=== PATIENT | female | born 1945 | race Caucasian/White ===

== ENCOUNTER 2023-08-19 16:14 | Observation (INO) | payer MEDICARE, SELFPAY ==
[2023-08-19] VITALS (30 sets, daily range): BP systolic 147–174; BP diastolic 66–110; PULSE 62–86; RESP 10–16; TEMP 36.7; O2SAT 95–100
--- NOTE | ~2023-08-19 | XR_ITS ---
EXAMINATION: XR chest 2V DATE: 08/19/2023 16:52 INDICATION: Chest pressure TECHNIQUE: PA and lateral views of the chest are obtained. COMPARISON: None available FINDINGS: The lungs are free of acute opacities. No pleural effusion or pneumothorax. The cardiomedia stinal silhouette is normal. There are bridging osteophytes at multiple levels in the spine, consiste nt with diffuse idiopathic skeletal hyperostosis (DISH). Surgical clips in the right upper quadrant are likely from prior cholecystectomy. IMPRESSION: 1. No acute cardiopulmonary abnormality. Reviewed, dictated and finalized at location F.
--- NOTE | ~2023-08-19 | NM_ITS ---
EXAMINATION: NM addis stress w perfusion DATE: 08/21/2023 13:07 INDICATION: Chest pain. TECHNIQUE: Rest images were obtained following intravenous administration of 9.6 mCi Tc99m tetrofosmi n (Myoview). The patient was infused intravenously with Lexiscan (regadenoson). Then, 31.2 mCi Tc99m tetrofosmin (Myoview) was administered intravenously, and supine and prone stress images were obtaine d. Data was reconstructed into short axis and horizontal and vertical long axis SPECT images. Gated S PECT images were also obtained. COMPARISON: None. FINDINGS: There is a small, mild, fixed perfusion defect involving apical to mid inferior wall of the ventricle, consistent with infarct. No reversible component to suggest ischemia. There is no segmen kenny wall motion abnormality. Left ventricular ejection fraction measures >70%. IMPRESSION: 1. Small area of mild infarct involving apical to mid inferior wall of left ventricle. 2. Normal left ventricular ejection fraction measuring >70%. Reviewed, dictated and finalized at location A. IMPRESSION: 1. Small area of mild infarct involving apical to mid inferior wall of left tonya tricle. 2. Normal left ventricular ejection fraction measuring >70%.
--- NOTE | 2023-08-19 16:15 | ECG_ITS ---
Measurements Intervals [place] Rate: 64 P: 48 CO: 202 QRS: -37 QRSD: 131 T: 61 QT: 399 QTc: 412 Interpretive Statements SINUS RHYTHM MARKED LEFT AXIS DEVIATION [QRS AXIS < -30] INCOMPLETE LEFT BUNDLE BRANCH BLOCK NO PREVIOUS ECG AVAILABLE FOR COMPARISON Electronically Signed On 08-19-2023 16:38:06 CDT by Nay Dickerson M.D.
[2023-08-19 16:45] LABS: Basophils Percent Auto 0.2 % (0.2-1.2); Eosinophils Absolute Auto 0.1 K/mm3 (0-0.3); Hematocrit 35.6 % (37.0-47.0); Hemoglobin 12.2 g/dL (12.0-15.0); Immature Granulocyte Absolute 0.01 K/mm3 (0.00-0.031); Immature Granulocyte Percent A 0.2 % (0-0.5); Immature Platelet Fraction Pct 2.7 % (0.9-11.2); Lymphocytes Absolute Auto 0.88 K/mm3 (0.9-3.2); Lymphocytes Percent Auto 18.3 % (18.3-44.2); Mean Corpuscular HGB Conc 34.3 g/dl (32-36); Mean Corpuscular Hemoglobin 32.2 pg (26-34); Mean Corpuscular Volume 93.9 fl (80-100); Mean Platelet Volume 10.2 fl (7.4-10.4); Monocytes Absolute Auto 0.3 K/mm3 (0.1-0.6); Monocytes Percent Auto 6.9 % (2.6-8.5); Neutrophils Absolute Auto 3.5 K/mm3 (1.3-6.7); Neutrophils Percent Auto 73.4 % (45.5-73.1); Platelet Count Result 69 k/mm3 (150-375); Red Blood Count 3.79 M/mm3 (4.2-5.4); Red Cell Distribution Width 13.8 % (11.5-14.5); White Blood Count 4.8 K/mm3 (4.5-10.0)
[2023-08-19 16:52] LABS: Alanine Aminotransferase 44 U/L (6-35); Albumin Level 4.6 g/dL (3.5-5.1); Alkaline Phosphatase 83 U/L (38-126); Anion Gap 10 mmol/L (8-16); Aspartate Amino Transferase 59 U/L (14-36); Bilirubin,Total 1.3 mg/dL (0.2-1.3); Blood Urea Nitrogen 18 mg/dL (7-17); Calcium 9.9 mg/dL (8.4-10.2); Carbon Dioxide 24 mmol/L (22-30); Chloride 98 mmol/L (98-107); Estimated CRCL calculation 65 ml/min; Estimated Glomerular Filt Rate > 60; Glucose 119 mg/dL (65-110); Lipase 75 U/L (23-300); Potassium 3.7 mmol/L (3.4-5.0); Sodium 132 mmol/L (137-145)
[2023-08-19 16:54] LABS: INR 1.1; Prothrombin Time 14.7 Seconds (11.1-14.7)
[2023-08-19 17:03] LABS: Troponin I 0.012 ng/mL (0.000-0.034)
--- NOTE | 2023-08-19 18:32 | ED.CHESTPAIN ---
HPI - Chest Pain General Chief Complaint: Chest Pain Stated Complaint: chest pain Time Seen by Provider: 08/19/23 17:06 History of Present Illness HPI narrative: 78-year-old female history of hypertension, hyperlipidemia, diabetes reports for evaluation for multiple vague complaints over the past 4 days. Patient states she has intermittently felt lightheaded, nauseous and horrible . She describes this as her heart beating strong in her chest that at times radiates up into her neck. Patient states she was started on Farxiga 2 to 3 months ago and was looking up medication adverse effects online and was concerned that this could be the cause of her symptoms, she is also concerned she is having a heart attack. She states she did not take her blood pressure medications last night or this morning as well as her Farxiga. She states has been taking her blood pressure which has been running 112-120/60 as well as her heart rate when she developed symptoms which ranges anywhere between 50-59. She denies syncope. She does states she has had intermittent chest discomfort which she describes as someone placing a hand on my chest and burning . But she denies pressure, pain, radiating symptoms, dyspnea. She denies exertional chest pain. She does report history of anxiety, however she is unmedicated. She believes that her symptoms are secondary to anxiety given that you seem to be worsen when she feels anxious. She also reports increased dressers in her life because she has been talking with an fast food cook planning her end of life. She lives alone and has no close family. She does report history of heart disease within her family. Denies smoking, history of heart disease herself or CVA. She states she does not feel lightheadedness at this time and does not have the chest sensation. Denies fever, cough or congestion, syncope, focal numbness or weakness, vision changes, fever. Related Data Home Medications Medication Instructions Recorded Confirmed atorvastatin 20 mg tablet 20 mg PO DAILY 08/20/23 08/20/23 dapagliflozin propanediol 10 mg 10 mg PO DAILY 08/20/23 08/20/23 tablet (Farxiga) insulin glargine 100 unit/mL (3 65 unit subcut QHS 08/20/23 08/20/23 mL) subcutaneous pen (Basaglar KwikPen U-100 Insulin) lisinopril 20 1 tablet PO DAILY 08/20/23 08/20/23 mg-hydrochlorothiazide 25 mg tablet metformin 1,000 mg tablet 1,000 mg PO BID 08/20/23 08/20/23 omeprazole 20 mg capsule,delayed 20 mg PO DAILY 08/20/23 08/20/23 release zolpidem 5 mg tablet 5 mg PO QHS PRN Sleep 08/20/23 08/20/23 Allergies Allergy/AdvReac Type Severity Reaction Status Date / Time No Known Allergies Allergy Verified 08/19/23 16:19 Review of Systems Review of Systems: CONSTITUTIONAL: Denies fever, chills EYES: Denies visual changes, redness, or discharge. ENT: Denies rhinorrhea, congestion, sore throat, or otalgia. CARDIOVASCULAR: See HPI RESPIRATORY: Denies cough or dyspnea. GASTROINTESTINAL: Denies abdominal pain, nausea, vomiting, or diarrhea. GENITOURINARY: Denies dysuria or hematuria. SKIN: Denies rash or itching. MUSCULOSKELETAL: Denies back pain, joint pain, or myalgia. NEUROLOGIC: Denies headache, numbness, dizziness, or weakness. PSYCHIATRIC: See HPI Exam Narrative: GENERAL: Well-appearing, in no acute distress. Patient resting comfortably in exam bed. HEAD: Normocephalic EYES: PERRLA ENT: Nares clear. Mucous membranes moist. Oropharynx without tonsillar hypertrophy exudate or other lesions. NECK: Supple. CHEST: No respiratory distress. Clear to auscultation, no adventitious breath sounds. No tenderness to chest wall. HEART: Regular rate and rhythm. No murmur heard. Normal peripheral pulses. ABDOMEN: Soft, nontender, normal active bowel sounds. EXTREMITIES: Normal range of motion. No edema. SKIN: Warm, dry, no rash. NEURO: No focal deficits. Alert and oriented x3. Cranial nerves II through XII intact. Strength 5/5 in BUE and BL
[2023-08-19] MEDS: LORazepam INJ (*CRX) 2 MG/ML VIAL 0.5 MG IV PUSH (18:43)
--- NOTE | 2023-08-19 19:16 | PC.NURSE ---
care and report given to [facility]. all questions answered.
--- NOTE | 2023-08-19 19:19 | PC.NURSE ---
Assumed care of pt from EMY Don at this time.
[2023-08-19] MEDS: SODIUM CHLORIDE 0.9% IV 1,000 ML 999 ML IV CONT (19:31)
[2023-08-19 19:37] LABS: Troponin I 0.024 ng/mL (0.000-0.034)
[2023-08-19 23:05] LABS: Troponin I 0.053 ng/mL (0.000-0.034)
--- NOTE | 2023-08-19 23:15 | ECG_ITS ---
Measurements Intervals [place] Rate: 71 P: 31 NC: 198 QRS: -34 QRSD: 137 T: 49 QT: 420 QTc: 459 Interpretive Statements SINUS RHYTHM WITH OCCASIONAL VENTRICULAR PREMATURE COMPLEXES WITH OCCASIONAL SUPRAVENTRICULAR PREMATURE COMPLEXES MARKED LEFT AXIS DEVIATION [QRS AXIS < -30] INTRAVENTRICULAR CONDUCTION DELAY [130+ ms QRS DURATION] MINIMAL VOLTAGE CRITERIA FOR LVH, CONSIDER NORMAL VARIANT [MEETS CRITERIA IN ONE OF: R(aVL), S(V1), R(V5), R(V5/V6)+S(V1)] ABNORMAL ECG COMPARED TO ECG 08/19/2023 16:24:13 INTRAVENTRICULAR CONDUCTION DELAY NOW PRESENT Electronically Signed On 08-20-2023 10:30:12 CDT by Miles Tellez M.D.
[2023-08-20] VITALS (21 sets, daily range): BP systolic 110–154; BP diastolic 49–72; PULSE 62–89; RESP 12–18; TEMP 36.1–36.8; O2SAT 96–99; BMI 35.2
--- NOTE | 2023-08-20 | ECHO_ITS ---
Patient Info Name: Selina Lopez Age: 78 years : 1945 Gender: Female Ht: 65 in Wt: 212 lbs BSA: 2.14 m2 HR: 78 bpm BP: 140 / 57 mmHg Heart Rhythm: Sinus Rhythm Technical Quality: Fair Exam Date: 08/20/2023 3:08 PM Exam Location: [facility] Pulmonary Exam Room: 211 Patient Status: Inpatient Admit Date: 08/19/2023 Staff Ordering Physician: Miles Tellez MD Pattern Puncher: Carissa Booker RDCS Attending Provider: Lelo Kauffman MD Referring Physician: Geoff VILLALTA; Exam Type: CA echo dop color flow w con Study Info Indications - NSTEMI CHEST PAIN Complete two-dimensional, color flow and Doppler transthoracic echocardiogram is performed with contrast to opacify the left ventricle and to improve the deliniation of the left ventricle endocardial borders. Contrast/Agitated Saline Contrast/Ag. Saline: Definity Amount: 2.00 ml Administered By: Carissa Booker [facility] Existing IV Access: Yes IV Access Condition: patent with no signs of infiltration Summary 1. Left ventricular chamber dimension is normal. 2. Left ventricular systolic function is normal, estimated at 50-55%. 3. There is mildly increased left ventricular wall thickness. 4. The left ventricular diastolic function is grade I diastolic dysfunction. 5. The apical septum, apical cap, and mid inferoseptal are hypokinetic. 6. Left atrial chamber dimension is mildly enlarged. 7. There is mild mitral valve regurgitation. 8. There is mild tricuspid valve regurgitation. 9. Mild pulmonary hypertension, estimated pulmonary arterial systolic pressure is 40 mmHg. Left Ventricle Left ventricular chamber dimension is normal. Left ventricular systolic function is normal, estimated at 50-55%. There is mildly increased left ventricular wall thickness. The left ventricular diastolic function is grade I diastolic dysfunction. The apical septum, apical cap, and mid inferoseptal are hypokinetic. The inferior wall, anterior wall, anterolateral wall, anteroseptal wall, inferolateral wall, and basal inferoseptal are not scored. Right Ventricle Right ventricular chamber dimension is normal. Right ventricular systolic function is normal. Left Atria Left atrial chamber dimension is mildly enlarged. Right Atria Right atrial chamber dimension is normal. Atrial Septum Intact interatrial septum visualized by color flow imaging. Aortic Valve The aortic valve is trileaflet. There is mild aortic valve sclerosis. There is no aortic valve stenosis. There is trace aortic valve regurgitation. Pulmonic Valve The pulmonic valve is normal. There is no pulmonic valve stenosis. There is trace pulmonic regurgitation. Mitral Valve The mitral valve has thickened leaflets. There is no mitral valve stenosis. There is mild mitral valve regurgitation. Tricuspid Valve The tricuspid valve leaflets are normal. There is no significant tricuspid valve stenosis. There is mild tricuspid valve regurgitation. Mild pulmonary hypertension, estimated pulmonary arterial systolic pressure is 40 mmHg. Pericardium/Pleural The pericardium appears normal. There is no pericardial effusion. Inferior Vena Cava Normal inferior vena cava with >50% collapse upon inspiration consistent with normal right atrial pressure, 10 mmHg. Aorta The aortic root size at the sinus of Valsalva is normal. Left Ventricular Outflow Tract Name Value Normal
[2023-08-20] MEDS: ENOXAPARIN 100 MG/ML SYRINGE 90 MG SUB-Q (00:05)
[2023-08-20] MEDS: NITROGLYCERIN SL 0.4 MG TABLET SUBLINGUAL (00:07)
--- NOTE | 2023-08-20 01:03 | ADMGEN ---
This patient, Selina Lopez, was admitted to IMU Room 211-01. Patient/family oriented to hospital policies and general routines including ID bracelet, bed and alarms, visiting hours, pain management, procedures, bathroom and other care routines, personal items, smoking policy, room service/diet, and visiting hours. Information on how to activate the Rapid Response Team has been discussed. Patient/Family are encouraged to report perceived risks to care and to ask questions if they do not understand what they are told or what they should do.
--- NOTE | 2023-08-20 10:03 | PM.IMHP ---
H&P: HPI History of Present Illness Date/Time: 08/20/23 10:03 Chief Complaint: Chest pain Narrative: 78yo female with HTN, HLD and DM presents to the ED with complaints of chest pain. Patient states that she started Farxiga about 2-3 months ago and has lost about 15 lb. She has noted her blood pressures have been running in the 110-120 range. She was feeling lightheaded but no syncopal episodes but the symptoms have improved since she has increased her water intake. Her blood sugars are better controlled she has had only 1 low sugar of 61. Over the past 3 days, patient has been having ?thumping? in her chest that radiates up to her neck. She has noted that her blood pressures have been about the same but her pulse is in the 50s. She states that she ?does not feel well?. This discomfort does not come on with exertion such as walking up a flight of steps but comes on about 15-20 minutes after sitting down. She thinks that the chest discomfort is worse with ?thinking about it?. Patient was doing errands yesterday when her jaw ?felt stiff?. She denies chest pain but said she had burning sensation in the chest and a very light pressure that radiated to the jaw. There was no diaphoresis, nausea or shortness of breath. She has not had recent stress test. She is a nonsmoker. She presented to [facility] in [place] who called EMS. Patient was given aspirin in transit but no change in the discomfort. She does state that she received Ativan in the emergency room with benefit. She has had recent stress in her life with discussing with her attorney at law about end of life plans and also states ?I am a hoarder? and is trying to allow someone in her home to help her clean out the house. She denies any headache, vision changes, hearing changes, odynophagia, dysphagia, cough, fever, chills, abdominal pain, back pain, dysuria, hematuria, calf pain, leg edema or neurologic symptoms. She denies any garbled speech or neurologic symptoms when she her jaw was ?stiff?. Patient does state that she has anxiety but states that these symptoms are different than her normal anxiety symptoms. She was brought to the emergency room for evaluation. Vital signs are stable. She was not hypoxic or tachycardic. Patient has held her blood pressure medicines for the past day. CBC was normal except for platelet count 69. Sodium 132, BUN 18 and glucose 119. AST 59 ALT 44. Lipase is normal. Troponin trended up to 0.053. Chest x-ray is clear. EKG showing NSR with marked left axis deviation and incomplete Left BBB. No old EKG to compare. She was given NTG, Lovenox, 1L of NS, Ativan and ASA. She was admitted for further care. Review of Systems Review of Systems: All systems reviewed & are unremarkable except as noted in HPI and below [facility] Past Medical History Medical History (Updated 08/20/23 @ 11:04 by Jonah Hernandez MD) Anxiety Diabetes mellitus Hoarding behavior HTN (hypertension), benign Hyperlipidemia Thrombocytopenia Surgical History Surgical History (Updated 08/20/23 @ 10:59 by Jonah Hernandez MD) S/P cholecystectomy Family History Family History (Updated 08/20/23 @ 11:01 by Jonah Hernandez MD) Mother Acute myocardial infarction Heart disease Cerebrovascular accident Father Acute myocardial infarction, Onset Age: 63 Heart disease Sibling Heart disease, Onset Age: 55 CABG at 55yo Social History Social History (Updated 08/20/23 @ 11:02 by Jonah Hernandez MD) Social History: Lives alone. Never . No children. She has 3 nephews that live close by but are not close personally. She is a lifelong nonsmoker. No alcohol or drug use. She is a full code. She nominates Samantha Lopez, her utcarh-in-put to be the individual who would make medical decisions for her if she is unable Smoking status: Never smoker Alcohol intake: never Substance use: never Substance use type: does not use Lack of Transportation:
--- NOTE | 2023-08-20 10:06 | ECG_ITS ---
Measurements Intervals [place] Rate: 64 P: 85 MD: 204 QRS: -29 QRSD: 130 T: 8 QT: 413 QTc: 427 Interpretive Statements SINUS RHYTHM LEFT ANTERIOR FASCICULAR BLOCK MODERATE INTRAVENTRICULAR CONDUCTION DELAY [110+ ms QRS DURATION] MINIMAL VOLTAGE CRITERIA FOR LVH, CONSIDER NORMAL VARIANT [MEETS CRITERIA IN ONE OF: R(aVL), S(V1), R(V5), R(V5/V6)+S(V1)] ABNORMAL ECG COMPARED TO ECG 08/19/2023 23:24:50 NO SIGNIFICANT CHANGES Electronically Signed On 08-20-2023 15:45:01 CDT by Miles Tellez M.D.
[2023-08-20 11:02] LABS: Eosinophils Percent Auto 0.6 % (0-4.4); Hematocrit 34.6 % (37.0-47.0); Hemoglobin 11.8 g/dL (12.0-15.0); Immature Granulocyte Absolute 0.01 K/mm3 (0.00-0.031); Immature Granulocyte Percent A 0.3 % (0-0.5); Immature Platelet Fraction Pct 2.8 % (0.9-11.2); Lymphocytes Absolute Auto 0.83 K/mm3 (0.9-3.2); Lymphocytes Percent Auto 23.6 % (18.3-44.2); Mean Corpuscular HGB Conc 34.1 g/dl (32-36); Mean Corpuscular Hemoglobin 32.1 pg (26-34); Mean Platelet Volume 9.9 fl (7.4-10.4); Monocytes Absolute Auto 0.3 K/mm3 (0.1-0.6); Monocytes Percent Auto 8.3 % (2.6-8.5); Neutrophils Absolute Auto 2.4 K/mm3 (1.3-6.7); Neutrophils Percent Auto 67.2 % (45.5-73.1); Platelet Count Result 61 k/mm3 (150-375); Red Blood Count 3.68 M/mm3 (4.2-5.4); Red Cell Distribution Width 13.9 % (11.5-14.5); White Blood Count 3.5 K/mm3 (4.5-10.0)
[2023-08-20 11:11] LABS: INR 1.2; Partial Thromboplastin Time 38.5 SECONDS (22.3-36.8)
[2023-08-20 11:12] LABS: Alanine Aminotransferase 46 U/L (6-35); Albumin Level 4.4 g/dL (3.5-5.1); Alkaline Phosphatase 76 U/L (38-126); Anion Gap 10 mmol/L (8-16); Aspartate Amino Transferase 61 U/L (14-36); Bilirubin,Total 1.3 mg/dL (0.2-1.3); Blood Urea Nitrogen 17 mg/dL (7-17); Calcium 9.5 mg/dL (8.4-10.2); Carbon Dioxide 26 mmol/L (22-30); Chloride 101 mmol/L (98-107); Cholesterol 163 mg/dL (0-200); Estimated CRCL calculation 65 ml/min; Estimated Glomerular Filt Rate > 60; Glucose 147 mg/dL (65-110); HDL Direct 44 mg/dL; Potassium 4.1 mmol/L (3.4-5.0); Sodium 137 mmol/L (137-145); Triglycerides 161 mg/dL (<150)
[2023-08-20 11:23] LABS: LDL Cholesterol Direct 86 mg/dL
[2023-08-20 11:41] LABS: Troponin I 0.106 ng/mL (0.000-0.034)
[2023-08-20] MEDS: hydroCHLOROthiazide 25 MG TABLET PO (11:59)
[2023-08-20] MEDS: PANTOPRAZOLE 40 MG TABLET PO (11:59)
[2023-08-20] MEDS: lisinopriL 20 MG TABLET PO (11:59)
[2023-08-20] MEDS: ASPIRIN 81 MG CHEWABLE TABLET PO (11:59)
[2023-08-20 12:00] LABS: Hemoglobin A1C 5.3 % (<5.7)
[2023-08-20 12:07] LABS: Hepatitis B Surface Antigen Negative (Negative)
[2023-08-20 12:13] LABS: HAV RESULT Negative (Negative); Hepatitis B Core IgM Result Negative (Negative)
[2023-08-20 12:25] LABS: Hepatitis C Virus Antibody Negative (Negative)
[2023-08-20 13:19] LABS: SARS-CoV-2 RNA PCR Negative (Negative)
--- NOTE | 2023-08-20 14:41 | PM.CNCAR ---
Assessment and Plan Assessment and plan (1) Elevated troponin: Code(s): R79.89 - Other specified abnormal findings of blood chemistry Status: Acute Assessment and Plan: Likely represents a non ST elevation myocardial infarction. Will start on aspirin 81 mg p.o. daily. Metoprolol tartrate 25 mg p.o. b.i.d.. Continue her lisinopril, statin. She does have thrombocytopenia. Will discuss with Dr. Dickerson regarding further workup via coronary angiogram or if we should stratify her by performing a nonwalking stress test. Will start on nitroglycerin paste 1 in Q 6 hours. Will hold off on further anticoagulation given her thrombocytopenia. Will keep NPO after midnight (2) Chest pain: Qualifiers: Chest pain type: unspecified Qualified Code(s): R07.9 - Chest pain, unspecified Code(s): R07.9 - Chest pain, unspecified Status: Acute Assessment and Plan: Probably related ACS (3) Hypertension associated with diabetes: Code(s): E11.59 - Type 2 diabetes mellitus with other circulatory complications; I15.2 - Hypertension secondary to endocrine disorders Status: Acute (4) Hyperlipidemia associated with type 2 diabetes mellitus: Code(s): E11.69 - Type 2 diabetes mellitus with other specified complication; E78.5 - Hyperlipidemia, unspecified Status: Acute Assessment and Plan: Above goal. Continue lisinopril, hydrochlorothiazide and will be adding metoprolol (5) Thrombocytopenia: Code(s): D69.6 - Thrombocytopenia, unspecified Status: Acute History of Present Illness History of Present Illness Consult date/time: 08/20/23 14:41 Requesting physician: Yuki Lewis PA-C Consult reason: chest pain and Other (Elevated troponin) Reason For Visit: Chest pain, Elevated Troponin Narrative: Reason for consultation: Chest pain, elevated troponin Date of service 08/20/2023 Requesting provider: Shannon Lewis History: Patient is a 78-year-old female who has hypertension, hyperlipidemia, diabetes. She presents to the hospital because of some chest discomfort. Patient has had 4-5 days worth of a sensation of her chest feeling hot as well as a sensation as if her clothes are too tight. It will last for 15-30 minutes at times associated some shortness of breath. It is not necessary worsened with activity and in fact feels little better with activity she thinks. She became anxious about yesterday and she did go to the [facility] yesterday and eventually was trans reported here for further workup and evaluation. Troponins are minimally elevated and still slightly up trending. She had another episode of some hot feeling and bring in her chest earlier this afternoon. She also felt a little nauseated that time as well as a bit dizzy. She currently feels little bit better. She currently denies any syncope, presyncope, paroxysmal nocturnal dyspnea, orthopnea, edema. No current palpitations. Review of Systems Review of Systems: All systems reviewed & are unremarkable except as noted in HPI and below Constitutional: Constitutional: Denies body ache(s) Eyes: Eyes: Denies blurry vision ENT: Reports Normal hearing present Cardiovascular: Cardiovascular: Reports chest pain Respiratory: Respiratory: Denies chest congestion and Denies hemoptysis Gastrointestinal: Gastrointestinal: Denies abdominal pain Genitourinary: Genitourinary: Denies hematuria Musculoskeletal: Musculoskeletal: Denies back pain Integumentary/Breasts: Skin/Breast: Denies dry skin Neurologic: Denies Abnormal speech present Psychiatric: Psychiatric: Reports anxiety Endocrine: Endocrine: Denies excessive sweating Hematologic/Lymphatic: Hematologic/Lymphatic: Denies easy bleeding Allergic/Immunologic: Allergic/Immunologic: Denies GI upset with certain foods PMFSH Past Medical History Medical History Anxiety Diabetes mellitus
[2023-08-20] MEDS: PERFLUTREN LIPID MICROSPHERES 1.5 ML VIAL DILUTED TO 10 ML TOTAL VOLUME IV PUSH (15:40)
[2023-08-20 15:45] LABS: Troponin I 0.095 ng/mL (0.000-0.034)
--- NOTE | 2023-08-20 16:24 | IVDEFINITY ---
Prior to administration of IV Definity the patient was educated on the risks and benefits of the imaging enhancing agent including potential adverse side effects. The patient verbalized understanding. Allergies were verified. No exclusion criteria were identified and at least one of the following inclusion criteria were met: 1) physician request, 2) patient technically difficult to image (per the [place] [employer]ocardi[employer] guidelines of two or more segments not discernable within the apical view), or 3) questionable left ventricular function. ?
[2023-08-20 16:52] LABS: Glucose Point of Care 155 mg/dl (65-105)
[2023-08-20] MEDS: metFORMIN HCL 500 MG TABLET 1000 MG PO (17:31)
[2023-08-20] MEDS: ASPIRIN 81 MG ENTERIC TABLET PO (17:32)
[2023-08-20] MEDS: NITROGLYCERIN OINTMENT 1 INCH DOSE TRANSDERM (17:32)
[2023-08-20 18:55] LABS: Glucose Point of Care 186 mg/dl (65-105)
[2023-08-20] MEDS: METOPROLOL TARTRATE 25 MG TABLET PO (21:26)
[2023-08-20] MEDS: INSULIN GLARGINE (*BKC) 100 UNITS/ML 30 UNITS SUB-Q (21:27)
[2023-08-20 23:58] LABS: Glucose Point of Care 135 mg/dl (65-105)
[2023-08-21] VITALS (11 sets, daily range): BP systolic 112–143; BP diastolic 57–66; PULSE 53–76; RESP 16–20; TEMP 35.7–36.9; O2SAT 97–100
[2023-08-21] MEDS: NITROGLYCERIN OINTMENT 1 INCH DOSE TRANSDERM ×2 (00:06→05:12)
[2023-08-21] MEDS: ACETAMINOPHEN 325 MG TABLET 650 MG PO (04:57)
[2023-08-21 05:33] LABS: Glucose Point of Care 134 mg/dl (65-105)
[2023-08-21] MEDS: ASPIRIN 81 MG ENTERIC TABLET PO (09:27)
[2023-08-21] MEDS: metFORMIN HCL 500 MG TABLET 1000 MG PO ×2 (09:27→16:17)
[2023-08-21] MEDS: PANTOPRAZOLE 40 MG TABLET PO (09:28)
[2023-08-21] MEDS: lisinopriL 20 MG TABLET PO (09:28)
--- NOTE | 2023-08-21 09:35 | EST_ITS ---
Patient Info Name: Selina Lopez Age: 78 years : 1945 Gender: Female Ht: 65 in Wt: 202 lbs BSA: 2.09 m2 HR: 55 bpm BP: 115 / 55 mmHg Heart Rhythm: Sinus Rhythm Exam Date: 08/21/2023 11:26 AM Exam Location: [facility] [place] Stress Patient Status: Inpatient Admit Date: 08/19/2023 Staff Ordering Physician: Nay Dickerson MD Attending Provider: Lelo Kauffman MD Exercise Technologist: Lawanad Cramer, CT Nurse: Julianne Estrada APN Exam Type: CA stress addis w NM Study Info Indications R07.89 - Other chest pain A regadenoson stress test was performed. Summary 1. No abnormal ST/T wave changes diagnostic of ischemia with Lexiscan. 2. Occasional PVCs. 3. Please correlate with nuclear medicine images, reported separately. 4. Stress test supervised by Julianne Estrada NP. Stress test interpreted by Nay Dickerson MD. Protocol: Lexiscan Stress ECG Details Stage: REST Duration (min): 1 min : 6 sec HR (bpm): 55 SBP (mmHg): 115 DBP (mmHg): 55 Stage: REST Duration (min): 6 min : 16 sec HR (bpm): 54 SBP (mmHg): 115 DBP (mmHg): 55 Stage: STAGE 1 Duration (min): 1 min : 0 sec HR (bpm): 72 SBP (mmHg): 130 DBP (mmHg): 59 Stage: RECOVERY Duration (min): 1 min : 0 sec HR (bpm): 73 SBP (mmHg): 130 DBP (mmHg): 59 Stage: RECOVERY Duration (min): 2 min : 0 sec HR (bpm): 70 SBP (mmHg): 130 DBP (mmHg): 59 Stage: RECOVERY Duration (min): 3 min : 0 sec HR (bpm): 69 SBP (mmHg): 117 DBP (mmHg): 54 Stage: RECOVERY Duration (min): 3 min : 10 sec HR (bpm): 70 SBP (mmHg): 117 DBP (mmHg): 54 Rest HR: 54 bpm Peak HR: 80 bpm Rest Sys BP: 115 mmHg Peak Sys BP: 130 mmHg Max Pred HR: 142 bpm % Max Pred HR: 56 % Target HR: 121 bpm Max RPP: 10,400 bpm*mmHg Total Time: 1 min : 0 sec Rest Sampson BP: 55 mmHg Peak Sampson BP: 59 mmHg Total Dose: 0.4 mg Resting ECG Sinus rhythm. Stress ECG Sinus rhythm. No abnormal ST/T wave changes diagnostic of ischemia with Lexiscan. Arrhythmias Occasional PVCs. Report Signatures
--- NOTE | 2023-08-21 12:25 | PM.PNCARD ---
Progress Note: A&P Assessment and Plan (1) Elevated troponin: Code(s): R79.89 - Other specified abnormal findings of blood chemistry Status: Acute Assessment and Plan: Likely represents a non ST elevation myocardial infarction.? Started on aspirin 81 mg p.o. daily.? Metoprolol tartrate 25 mg p.o. b.i.d..? Continue her lisinopril, statin.? She does have thrombocytopenia with platelet counts in the 60s. Given her chest pain and elevated troponin levels, I recommended cardiac catheterization to define her coronary anatomy. I did discuss with the patient that given her thrombocytopenia, if she needed PCI, I would prefer to trial her on DAPT and make sure her Plt count does not significantly drop with DAPT and if it remains stable, then we would do stage PCI once we know she can tolerate DAPT. Discussed the indication for the procedure, procedure details, risks vs benefits, and alternative management options, including non-invasive stress testing. Patient is quite upset today at the thought of possibly losing her dog, and she does not wish to undergo cardiac catheterization at this time and prefers stress testing. Patient is agreeable to cath if her symptoms worsen or stress test shows significant abnormality, however, she would like to go home as soon as possible to make sure her dog does not get taken away from her. Will obtain Lexiscan today. (2) Chest pain: Qualifiers: Chest pain type: unspecified Qualified Code(s): R07.9 - Chest pain, unspecified Code(s): R07.9 - Chest pain, unspecified Status: Acute Assessment and Plan: As above. (3) Hypertension associated with diabetes: Code(s): E11.59 - Type 2 diabetes mellitus with other circulatory complications; I15.2 - Hypertension secondary to endocrine disorders Status: Acute Assessment and Plan: Continue Lisinopril, HCTZ, Metoprolol. (4) Hyperlipidemia associated with type 2 diabetes mellitus: Code(s): E11.69 - Type 2 diabetes mellitus with other specified complication; E78.5 - Hyperlipidemia, unspecified Status: Acute Assessment and Plan: Continue statin. (5) Thrombocytopenia: Code(s): D69.6 - Thrombocytopenia, unspecified Status: Acute Assessment and Plan: Platelet count in the 60s. Subjective Date/time seen: 08/21/23 12:25 Interval history: Reason for consult: Chest pain, elevated troponins. HPI: Patient is a 78-year-old female who has hypertension, hyperlipidemia, diabetes.? She presents to the hospital because of some chest discomfort.? Patient has had 4-5 days worth of a sensation of her chest feeling hot as well as a sensation as if her clothes are too tight.? It will last for 15-30 minutes at times associated some shortness of breath.? It is not necessary worsened with activity and in fact feels little better with activity she thinks.? She became anxious about yesterday and she did go to the [facility] yesterday and eventually was trans reported here for further workup and evaluation.? Troponins are minimally elevated and still slightly up trending.? She had another episode of some hot feeling and bring in her chest earlier this afternoon.? She also felt a little nauseated that time as well as a bit dizzy.? She currently feels little bit better.? She currently denies any syncope, presyncope, paroxysmal nocturnal dyspnea, orthopnea, edema.? No current palpitations. Date of service 08/21: When I walked into the patient's room, she was crying and very upset. When I asked her what was wrong, patient states that her neighbor checked on her dog at home, and realized that she is a hoarder, and is considering calling the authorities because the neighbor does not feel it is a safe place for the dog to live. Patient is very upset at the thought of possibly losing her dog. She reports that her hoarder syndrome causes a great deal of stress for her. Review of Systems Review of Systems: All systems re
[2023-08-21] MEDS: CLOPIDOGREL BISULFATE 75 MG TABLET PO (16:17)
[2023-08-21] MEDS: ATORVASTATIN 40 MG TABLET 80 MG PO (16:17)
--- NOTE | 2023-08-21 16:47 | PM.DS ---
DS: Admitting Diagnosis Discharge Date 08/21/23 Admitting Diagnosis Chest pain DS: Discharge Diagnosis Discharge Diagnosis (1) Non-ST elevation TN (NSTEMI): Code(s): I21.4 - Non-ST elevation (NSTEMI) myocardial infarction Status: Acute (2) Elevated troponin: Code(s): R79.89 - Other specified abnormal findings of blood chemistry Status: Acute (3) Elevated LFTs: Code(s): R79.89 - Other specified abnormal findings of blood chemistry Status: Acute (4) Diabetes mellitus: Code(s): E11.9 - Type 2 diabetes mellitus without complications Status: Acute (5) Thrombocytopenia: Code(s): D69.6 - Thrombocytopenia, unspecified Status: Acute (6) HTN (hypertension), benign: Code(s): I10 - Essential (primary) hypertension Status: Acute (7) Hyperlipidemia: Code(s): E78.5 - Hyperlipidemia, unspecified Status: Acute DS: Summary Hospital Course Reason for hospitalization: 78yo female with HTN, HLD and DM presents to the ED with complaints of chest pain.??Please see H&P for details. Hospital Course: Patient presents with chest pain.? Troponin elevated to 0.106.? EKG changes noted but no old EKG to compare.? Patient does have risk factors including diabetes, hypertension hyperlipidemia.? She also has a family history of early coronary disease.? She is a lifelong nonsmoker.? She has had some increased stress in her life which could be contributing to her increased symptoms especially related to her untreated anxiety.? Cardiology consulted and felt the patient probably had a NSTEMI.?LFTs mildly elevated and stable on repeat.? Probably related to fatty liver.? She is also on atorvastatin.?She is status post cholecystectomy.? Hepatitis panel and COVID testing were negative. Patient with well controlled diabetes.? She is on dapagliflozin, metformin and Basaglar at night.? With her weight loss, she may need to have her medications adjusted.? This was discussed with her and that she needs to speak to her tool design engineer.?Hemoglobin A1c 5.3. Platelet count is low but this is chronic for her.? She is followed by a ingot supervisor for this. She underwent Lexiscan stress test which showed a small mild area of mild infarct involving apical to mid inferior wall of left ventricle. Perfusion defect is fixed, consistent with completed infarct. There is no reversible component to suggest ischemia. There is no wall motion abnormality. LVEF is >70%. Left heart catheterization discussed but patient would like to hold off for now. Plan for medical management with ASA, Plavix, Metoprolol, Lipitor and Imdur. Patient overall did well and was able to be discharged home on 08/21/23 Status at Discharge Cognitive/behavioral status at discharge: stable Time Spent with Patient Time attestation: Total time spent providing and/or coordinating discharge services: 35 minutes Time spent: Greater than 30 minutes Exam Narrative: AF 98.5 143/64 55 16 99% ra Gen - NARD Chest - CTA bilaterally CV - RRR S1/S2 Abd - soft. Nontender. Nondistended. Positive bowel sounds. Ext - no pedal edema. Psych - normal mood and affect. Patient is pleasant and cooperative. Skin - warm and dry. DS: Data Data Completed and Pending Labs on day of discharge: Labs from last 24 hours 08/21/23 08/20/23 08/20/23 05:30 23:55 18:53 POC Capillary Glucose 134 H 135 H 186 H 08/20/23 12:12 POC Capillary Glucose 155 H Discharge Plan Discharge Attending physician on discharge: Jonah Hernandez Consulting providers: Miles Tellez; Yuki Lewis Discharging Clinician: Jonah Hernandez Anticipated Discharge Date/Time: 08/21/23 16:58 Patient Disposition: Home, Self-Care Activity: no straining and as tolerated Diet: heart healthy and diabetic Discharge Instructions: Please check glucose before meals and before bed. Record and bring into yo
[2023-08-21 17:01] LABS: Glucose Point of Care 129 mg/dl (65-105)
== END 2023-08-21 18:31 | disposition home or self-care (01) ==
LOC: ANHED 23:36 → ANHIMU 08-20 00:44
PROVIDERS: Emergency Medicine; Internal Medicine; Internal Medicine Cardiovascular Disease; Admitting Provider Internal Medicine; Emergency Provider Physician Assistant; Visit Provider Internal Medicine
DX: I21.4 Non-ST elevation (NSTEMI) myocardial infarction (principal); R77.8 Other specified abnormalities of plasma proteins; R74.01 Elevation of levels of liver transaminase levels; E11.69 Type 2 diabetes mellitus with other specified complication; D69.6 Thrombocytopenia, unspecified; I15.2 Hypertension secondary to endocrine disorders; E78.5 Hyperlipidemia, unspecified; E11.59 Type 2 diabetes mellitus with other circulatory complications; I10 Essential (primary) hypertension; I08.1 Rheumatic disorders of both mitral and tricuspid valves; I27.20 Pulmonary hypertension, unspecified; R94.31 Abnormal electrocardiogram [ECG] [EKG]; F41.9 Anxiety disorder, unspecified; F42.3 Hoarding disorder; Z79.84 Long term (current) use of oral hypoglycemic drugs; Z79.4 Long term (current) use of insulin; Z79.899 Other long term (current) drug therapy
CPT/HCPCS: 36415; 71046; 78452; 80053; 80061; 80074; 82948; 83036; 83690; 84443; 84484; 85025; 85055; 85610; 85730; 87635; 93005; 93017; 96361; 96372; 96374; 96375; 99285; A9270; A9502; C8929; G0378; G0379; J1650; J1815; J2060; J7030; Q9957

== ENCOUNTER 2024-04-06 15:12 | Emergency (ER) | payer OTHER, SELFPAY ==
[2024-04-06] VITALS (13 sets, daily range): BP systolic 105–135; BP diastolic 53–112; PULSE 52–61; RESP 10–18; TEMP 36.4–36.6; O2SAT 87–98
--- NOTE | ~2024-04-06 | XR_ITS ---
EXAMINATION: XR chest 2V 04/06/2024 15:35 INDICATION: Chest pain PROCEDURE: 2 view chest COMPARISON: 08/19/2023 FINDINGS: The lungs are clear. The cardiomediastinal silhouette is within normal limits. There are no pleural effusions. There is no pneumothorax suspected. IMPRESSION: 1: NO ACUTE CARDIOPULMONARY DISEASE. Reviewed, dictated and finalized at location B.
--- NOTE | 2024-04-06 15:13 | ECG_ITS ---
SEE SCANNED COPY FOR CONFIRMED REPORT MTDD
[2024-04-06 15:34] LABS: Basophils Percent Auto 0.2 % (0.2-1.2); Eosinophils Percent Auto 0.6 % (0-4.4); Hematocrit 33.3 % (37.0-47.0); Hemoglobin 11.1 g/dL (12.0-15.0); Immature Granulocyte Absolute 0.02 K/mm3 (0.00-0.031); Immature Granulocyte Percent A 0.4 % (0-0.5); Immature Platelet Fraction Pct 3.6 % (0.9-11.2); Lymphocytes Percent Auto 17.8 % (18.3-44.2); Mean Corpuscular HGB Conc 33.3 g/dl (32-36); Mean Corpuscular Hemoglobin 30.9 pg (26-34); Mean Corpuscular Volume 92.8 fl (80-100); Mean Platelet Volume 11.4 fl (7.4-10.4); Monocytes Absolute Auto 0.3 K/mm3 (0.1-0.6); Monocytes Percent Auto 6.1 % (2.6-8.5); Neutrophils Absolute Auto 3.8 K/mm3 (1.3-6.7); Neutrophils Percent Auto 74.9 % (45.5-73.1); Platelet Count Result 65 k/mm3 (150-375); Red Blood Count 3.59 M/mm3 (4.2-5.4); Red Cell Distribution Width 15.2 % (11.5-14.5); White Blood Count 5.1 K/mm3 (4.5-10.0)
[2024-04-06 15:43] LABS: INR 1.2; Prothrombin Time 15.7 Seconds (11.1-14.7)
[2024-04-06 15:44] LABS: Partial Thromboplastin Time 32.3 Seconds (22.3-36.8)
[2024-04-06 15:45] LABS: Alanine Aminotransferase 30 U/L (6-35); Albumin Level 4.4 g/dL (3.5-5.1); Alkaline Phosphatase 77 U/L (38-126); Anion Gap 13 mmol/L (4-12); Aspartate Amino Transferase 46 U/L (14-36); Bilirubin,Total 1.4 mg/dL (0.2-1.3); Blood Urea Nitrogen 30 mg/dL (7-17); Calcium 9.6 mg/dL (8.4-10.2); Carbon Dioxide 19 mmol/L (22-30); Chloride 103 mmol/L (98-107); Estimated CRCL calculation 58 ml/min; Estimated Glomerular Filt Rate > 60; Glucose 94 mg/dL (65-110); Lipase 105 U/L (23-300); Potassium 3.8 mmol/L (3.4-5.0); Sodium 135 mmol/L (137-145)
[2024-04-06 15:56] LABS: Troponin I 0.019 ng/mL (0.000-0.034)
[2024-04-06] MEDS: ASPIRIN 81 MG CHEWABLE TABLET 324 MG PO (17:13)
--- NOTE | 2024-04-06 17:17 | ED.CHESTPAIN ---
HPI - Chest Pain General Chief Complaint: Chest Pain Stated Complaint: chest pain Time Seen by Provider: 04/06/24 16:39 History of Present Illness HPI narrative: 70-year-old female presents to the emergency department for evaluation for multiple complaints. Patient states yesterday she was not feeling well and then today she had an episode where she had onset of some chest tightness that did radiate to her right arm. Patient states symptoms were similar to when she had her [place] in August. Patient also reports he did have some anxiety with the situation. Patient denies any current chest pain upon arrival to the emergency department. Related Data Home Medications Medication Instructions Recorded Confirmed dapagliflozin propanediol 10 mg 10 mg PO DAILY 08/20/23 08/20/23 tablet (Farxiga) insulin glargine 100 unit/mL (3 65 unit subcut QHS 08/20/23 08/20/23 mL) subcutaneous pen (Basaglar KwikPen U-100 Insulin) lisinopril 20 1 tablet PO DAILY 08/20/23 08/20/23 mg-hydrochlorothiazide 25 mg tablet metformin 1,000 mg tablet 1,000 mg PO BID 08/20/23 08/20/23 Allergies Allergy/AdvReac Type Severity Reaction Status Date / Time No Known Allergies Allergy Verified 04/06/24 15:28 Review of Systems Review of Systems: All systems reviewed & are unremarkable except as noted in HPI and below PMFSH Past Medical History Medical History Anxiety Diabetes mellitus Hoarding behavior HTN (hypertension), benign Hyperlipidemia Thrombocytopenia Surgical History Surgical History S/P cholecystectomy Family History Family History Mother Acute myocardial infarction Heart disease Cerebrovascular accident Father Acute myocardial infarction, Onset Age: 63 Heart disease Sibling Heart disease, Onset Age: 55 CABG at 55yo Social History Social History Social History: Lives alone. Never . No children. She has 3 nephews that live close by but are not close personally. She is a lifelong nonsmoker. No alcohol or drug use. She is a full code. She nominates Samantha Lopez, her [id number] to be the individual who would make medical decisions for her if she is unable Smoking status: Never smoker Alcohol intake: never Substance use: never Substance use type: does not use Lack of Transportation: No Lack of Food: Never True Current Housing: I Have Housing Concerned About Future Housing: No Difficulty Paying Gas/Electric Bills: No Difficulty Paying for Meds: No Currently Unemployed: No Education: Associate Degree Difficulty w/ Childcare or Family Care: No Spiritual care concerns: No Exam Narrative: APPEARANCE: Well appearing, no pain, no distress, well-nourished. HEAD: normocephalic, atraumatic. EYES: PERRLA/EOMI, conjunctivae clear. NOSE: Normal no drainage EARS:TMS clear with good light reflex. THROAT: Pharynx clear, no exudate. NECK: Supple. No adenopathy, no masses. RESPIRATORY: Airway patent, respirations nonlabored. Clear to auscultation bilaterally, no rales, rhonchi, wheezing. CARDIOVASCULAR: Regular rate and rhythm without murmurs rubs or gallops. ABDOMINAL: Soft, nontender, nondistended, normal bowel sounds MUSCULOSKELETAL: Moves all extremities. Strength/ROM intact, No edema, No calf tenderness. NEURO: Alert. Cranial nerves II through XII intact. Good gait. Good coordination SKIN: Warm, dry. Normal Color Course Vital Signs Vital signs: Vital Signs Temperature 97.5 F L 04/06/24 15:25 Pulse Rate 61 04/06/24 15:25 Respiratory Rate 18 04/06/24 15:25 Blood Pressure 133/86 04/06/24 15:25 Pulse Oximetry 98 04/06/24 15:25 Oxygen Delivery Room Air 04/06/24 15:25 Temperature 97.9 F 04/06/24 17:31 Pulse Rate 56
[2024-04-06 18:07] LABS: Influenza A QL RT-PCR Negative (Negative); Influenza B QL RT-PCR Negative (Negative); RSV RNA, RT-PCR Negative (Negative); SARS-CoV-2 RNA PCR Negative (Negative)
[2024-04-06 18:54] LABS: Troponin I 0.021 ng/mL (0.000-0.034)
[2024-04-06 19:11] LABS: Appearance Urine Clear (Clear); Bilirubin Urine Negative (Negative); Blood Urine Negative (Negative); Color Urine Yellow (Yellow); Glucose Urine UA 3+ mg/dL (Negative); Ketones Urine Trace mg/dL (Negative); Leukocyte Esterase Ur Negative LEU/UL (Negative); Nitrate Urine Negative (Negative); Protein Urine Negative (Negative); Specific Grav Ur 1.019 (1.001-1.035); Urobilinogen Urine 0.2 mg/dL (<2.0)
[2024-04-06 19:15] LABS: Add Urine Microscopic? YES
== END 2024-04-06 20:32 | disposition home or self-care (01) ==
PROVIDERS: Emergency Provider Emergency Medicine; PCP Internal Medicine Endocrinology, Diabetes & Metabolism
DX: R07.89 Other chest pain (principal); Z20.822 Contact with and (suspected) exposure to COVID-19; I25.2 Old myocardial infarction; E11.9 Type 2 diabetes mellitus without complications; I10 Essential (primary) hypertension; E78.5 Hyperlipidemia, unspecified; Z79.4 Long term (current) use of insulin; Z79.84 Long term (current) use of oral hypoglycemic drugs; Z90.49 Acquired absence of other specified parts of digestive tract; Z79.899 Other long term (current) drug therapy; R00.1 Bradycardia, unspecified; I44.0 Atrioventricular block, first degree; R94.31 Abnormal electrocardiogram [ECG] [EKG]
CPT/HCPCS: 36415; 71046; 80053; 81001; 83690; 84484; 85025; 85055; 85610; 85730; 87637; 93005; 99284; A9270